=== PATIENT | female | born 1980 | race Two or more races ===

== ENCOUNTER 2019-03-17 20:03 | Emergency (ER) | payer OTHER, MEDICAID ==
[~2019-03-17] VITALS: Ht 157.5 cm; Wt 77.1 kg
[2019-03-17 20:37] LABS: Urine Bacteria NONE SEEN /hpf (None Seen); Urine Blood Negative /uL (Negative); Urine Specific Gravity 1.034 (1.001-1.035); Urine WBC 4 /hpf (0 - 5)
[2019-03-17 21:19] LABS: Basophils # (auto) 0 uL; Basophils % (auto) 0.4 % (0.0-2.0); Eosinophils # (auto) 0.1 uL; Eosinophils % (auto) 1.1 % (0.0-7.0); Hematocrit 44.2 % (36.0-46.0); Hemoglobin 14.9 g/dL (12.2-16.2); Lymphocytes # (auto) 1.1 uL; Lymphocytes % (auto) 13.7 % (10.0-50.0); Mean Corpuscular Hemoglobin 30.5 pg (28.0-32.0); Mean Corpuscular Hgb Conc. 33.6 g/dL (32.0-36.0); Mean Corpuscular Volume 90.6 fL (80.0-100.0); Monocytes # (auto) 0.4 uL; Monocytes % (auto) 5.7 % (0.0-12.0); Neutrophils # (auto) 6.1 uL; Neutrophils % (auto) 79.1 % (37.0-80.0); Nucleated Red Blood Cells % 0.1 %; Platelet Count (auto) 226 10^3/uL (140-450); Red Blood Cells 4.88 10^6/uL (4.0-5.20); Red Cell Distribution Width 13.6 % (11.8-14.3); White Blood Cell 7.7 10^3/uL (4.4-10.8)
[2019-03-17 21:33] LABS: Albumin 3.9 g/dL (3.4-5.0); Calcium 9.2 mg/dL (8.5-10.1); Potassium 4.3 mmol/L (3.5-5.1)
[2019-03-17 21:36] LABS: Bilirubin, Total 0.2 mg/dL (0.2-1.0); Total Protein 7.7 g/dL (6.4-8.2)
[2019-03-17] MEDS: MAGNESIUM CITRATE SOLUTION 300 ML BTL PO ONE (23:05)
[2019-03-17 23:15] VITALS: BP 132/97
[2019-03-17] MEDS: MAGNESIUM CITRATE SOLUTION 300 ML BTL ONE (23:24)
== END 2019-03-17 23:41 | disposition home or self-care (01) ==
LOC: ER 20:11
DX: N39.0 Urinary tract infection, site not specified (principal); K59.00 Constipation, unspecified
CPT/HCPCS: 36415; 80053; 81001; 81025; 83690; 85025

== ENCOUNTER 2020-03-13 13:24 | Emergency (ER) | payer OTHER, MEDICAID ==
[~2020-03-13] VITALS: Ht 162.6 cm; Wt 72.6 kg
[2020-03-13 13:37] VITALS: BP 135/86
== END 2020-03-13 18:50 | disposition home or self-care (01) ==
LOC: ER 13:24 → EDBD 13:24 → ER 18:50
DX: F32.9 Major depressive disorder, single episode, unspecified (principal); Z76.0 Encounter for issue of repeat prescription

== ENCOUNTER 2021-08-17 04:55 | Emergency (ER) | payer OTHER, MEDICAID ==
[~2021-08-17] VITALS: Ht 162.6 cm; Wt 95.3 kg
[2021-08-17 04:56] VITALS: BP 148/92
[2021-08-17 06:50] LABS: Basophils # (auto) 0 10 ^3/uL (0-0.2); Basophils % (auto) 0.1 % (0.0-2.0); Eosinophils # (auto) 0 10 ^3/uL (0-0.8); Eosinophils % (auto) 0.1 % (0.0-7.0); Hematocrit 39.5 % (36.0-46.0); Hemoglobin 13.3 g/dL (12.2-16.2); Lymphocytes # (auto) 0.8 10 ^3/uL (0.4-5.4); Lymphocytes % (auto) 8.8 % (10.0-50.0); Mean Corpuscular Hemoglobin 30.3 pg (28.0-32.0); Mean Corpuscular Hgb Conc. 33.8 g/dL (32.0-36.0); Mean Corpuscular Volume 89.8 fL (80.0-100.0); Monocytes # (auto) 0.3 10 ^3/uL (0-1.3); Monocytes % (auto) 3.1 % (0.0-12.0); Neutrophils # (auto) 7.8 10 ^3/uL (1.6-8.6); Neutrophils % (auto) 87.9 % (37.0-80.0); Nucleated Red Blood Cells % 0.1 %; Red Blood Cells 4.39 10^6/uL (4.0-5.20); Red Cell Distribution Width 12.9 % (11.8-14.3); White Blood Cell 8.9 10^3/uL (4.4-10.8)
[2021-08-17 07:06] LABS: Calcium 9.2 mg/dL (8.5-10.1); Potassium 3.6 mmol/L (3.5-5.1)
[2021-08-17 07:10] LABS: BUN/Creatinine Ratio 14.3; Bilirubin, Total 0.7 mg/dL (0.2-1.0)
[2021-08-17 11:47] LABS: Urine Bacteria NONE SEEN /hpf (None Seen); Urine Blood 3+ /uL (Negative); Urine Specific Gravity 1.034 (1.001-1.035); Urine WBC 13 /hpf (0 - 5)
== END 2021-08-17 13:20 | disposition left against medical advice (07) ==
LOC: EDUNIT# 04:55 → EDBD 04:55 → ER 04:55
DX: R10.84 Generalized abdominal pain (principal); R11.2 Nausea with vomiting, unspecified; Z53.21 Procedure and treatment not carried out due to patient leaving prior to being seen by health care provider
CPT/HCPCS: 36415; 80053; 81001; 81025; 83690; 84702; 85025

== ENCOUNTER 2021-08-17 20:59 | Inpatient (IN) | payer OTHER, MEDICAID ==
[~2021-08-17] VITALS: Ht 157.5 cm; Wt 72.9 kg
[2021-08-18] MEDS ORDERED: LACTATED RINGER'S 2,000 ML IV ONE (05:00)
[2021-08-18] MEDS ORDERED: SOD CHL 0.9%/ KCL 20MEQ 1,000 ML IV ONE (05:00)
[2021-08-18] MEDS ORDERED: DEXTROSE (50%) 50ML SYRG IV PRN ×2 (05:00→14:00)
[2021-08-18] MEDS ORDERED: ONDANSETRON HCL 4 MG/2 ML VIAL IV ONE (06:15)
[2021-08-18 07:25] LABS: Magnesium 2.4 mg/dL (1.6-2.6)
[2021-08-18 07:27] LABS: Phosphorus 4.5 mg/dL (2.5-4.90)
[2021-08-18] MEDS: ACCU-CHEK COMFORT CURVE STRIP VI SCH ×11 (09:25→22:30)
[2021-08-18] MEDS: InsuLIN R (HUMAN) 100 UNITS in SODIUM CHL 0.9% 99 ML IV SCH ×3 (10:46→14:10)
[2021-08-18] MEDS ORDERED: INSULIN LANTUS (GLARGINE) 1 /0.01ml (100units/ml) SC ONE (14:00)
[2021-08-18 15:21] LABS: Calcium 8.9 mg/dL (8.5-10.1); Magnesium 2.4 mg/dL (1.6-2.6); Potassium 3.6 mmol/L (3.5-5.1)
[2021-08-18 15:27] LABS: BUN/Creatinine Ratio 24.1; Phosphorus 2.2 mg/dL (2.5-4.90)
[2021-08-18] MEDS: D5W/SOD CHL 0.45%/KCL 20MEQ 1,000 ML IV SCH ×4 (16:09→20:40)
[2021-08-18] MEDS: SOD CHL 0.9%/ KCL 20MEQ 1,000 ML IV SCH ×2 (16:10→20:40)
[2021-08-18] MEDS: ONDANSETRON HCL 4 MG/2 ML VIAL IV PRN (16:23)
[2021-08-18 19:38] LABS: Urine Bacteria NONE SEEN /hpf (None Seen); Urine Blood 3+ /uL (Negative); Urine Mucus FEW (None Seen); Urine Specific Gravity 1.038 (1.001-1.035); Urine WBC 11 /hpf (0 - 5)
[2021-08-18 21:46] LABS: BUN/Creatinine Ratio 22.5; Calcium 8.7 mg/dL (8.5-10.1); Potassium 3.7 mmol/L (3.5-5.1)
[2021-08-19] MEDS: ACCU-CHEK COMFORT CURVE STRIP VI SCH ×12 (00:26→21:14)
[2021-08-19] MEDS: ONDANSETRON HCL 4 MG/2 ML VIAL IV PRN ×3 (00:58→20:48)
[2021-08-19] MEDS: MORPHINE SULFATE INJ 2 MG/ml SYRG IV PRN ×2 (01:06→18:09)
[2021-08-19 04:30] LABS: Anion Gap 11 (5-15); BUN/Creatinine Ratio 24.3; Blood Urea Nitrogen 17 mg/dL (7-18); Calcium 8.2 mg/dL (8.5-10.1); Carbon Dioxide 14 mmol/L (21-32); Chloride 110 mmol/L (98-107); GFR African American 117 mL/min; GFR Non-African American 97 mL/min; Glucose 200 mg/dL (74-106); Sodium 135 mmol/L (136-145)
[2021-08-19] MEDS: D5W/SOD CHL 0.45%/KCL 20MEQ 1,000 ML IV SCH ×6 (05:00→16:45)
[2021-08-19] MEDS: SOD CHL 0.9%/ KCL 20MEQ 1,000 ML IV SCH ×3 (07:00→16:40)
[2021-08-19 08:28] LABS: BUN/Creatinine Ratio 25.7; Calcium 8.8 mg/dL (8.5-10.1); Potassium 3.3 mmol/L (3.5-5.1)
[2021-08-19] MEDS ORDERED: INSULIN LANTUS (GLARGINE) 1 /0.01ml (100units/ml) SC SCH (10:00)
[2021-08-19] MEDS ORDERED: cefTRIAXone 1GM/50ML D5W 50 ML IV ONE (12:30)
[2021-08-19 17:22] LABS: BUN/Creatinine Ratio 17.6; Calcium 8.2 mg/dL (8.5-10.1); Potassium 3.4 mmol/L (3.5-5.1)
[2021-08-19] MEDS ORDERED: THROAT LOZENGES(CEPASTAT) MT PRN (18:30)
[2021-08-19] MEDS ORDERED: DEXTROSE (50%) 50ML SYRG IV PRN (18:30)
[2021-08-19] MEDS ORDERED: ACETAMINOPHEN 325 MG TAB PO PRN (18:30)
[2021-08-19] MEDS: SODIUM CHLORIDE 0.9% 1,000 ML IV SCH (20:52)
[2021-08-19] MEDS ORDERED: ESCI-28 PO (21:11)
[2021-08-19] MEDS ORDERED: TRAZ50TA2 PO (21:11)
[2021-08-19] MEDS: INSULIN LANTUS (GLARGINE) 1 /0.01ml (100units/ml) SC SCH (21:15)
[2021-08-19] MEDS: InsuLIN REG 1unit/0.01ml Soln (100units/ml) SC SCH (21:17)
[2021-08-19 21:18] VITALS: BP 157/94
[2021-08-20 05:00] VITALS: BP 147/89
[2021-08-20] MEDS: SODIUM CHLORIDE 0.9% 1,000 ML IV SCH ×2 (05:11→16:07)
[2021-08-20] MEDS: ACCU-CHEK COMFORT CURVE STRIP VI SCH ×4 (05:48→21:11)
[2021-08-20] MEDS: InsuLIN REG 1unit/0.01ml Soln (100units/ml) SC SCH ×4 (05:52→21:18)
[2021-08-20] MEDS: INSULIN LANTUS (GLARGINE) 1 /0.01ml (100units/ml) SC SCH ×2 (05:53→21:12)
[2021-08-20 06:14] LABS: Basophils # (auto) 0 10 ^3/uL (0-0.2); Basophils % (auto) 0.3 % (0.0-2.0); Eosinophils # (auto) 0 10 ^3/uL (0-0.8); Eosinophils % (auto) 0.1 % (0.0-7.0); Hematocrit 34.9 % (36.0-46.0); Hemoglobin 12.4 g/dL (12.2-16.2); Lymphocytes # (auto) 1.4 10 ^3/uL (0.4-5.4); Lymphocytes % (auto) 17.8 % (10.0-50.0); Mean Corpuscular Hemoglobin 31.3 pg (28.0-32.0); Mean Corpuscular Hgb Conc. 35.4 g/dL (32.0-36.0); Mean Corpuscular Volume 88.4 fL (80.0-100.0); Monocytes # (auto) 0.6 10 ^3/uL (0-1.3); Monocytes % (auto) 7.2 % (0.0-12.0); Neutrophils # (auto) 5.9 10 ^3/uL (1.6-8.6); Neutrophils % (auto) 74.6 % (37.0-80.0); Nucleated Red Blood Cells % 0.1 %; Red Blood Cells 3.95 10^6/uL (4.0-5.20); Red Cell Distribution Width 12.9 % (11.8-14.3); White Blood Cell 7.9 10^3/uL (4.4-10.8)
[2021-08-20 06:30] LABS: Albumin 3.1 g/dL (3.4-5.0); Calcium 8.2 mg/dL (8.5-10.1)
[2021-08-20 06:36] LABS: BUN/Creatinine Ratio 21.6; Bilirubin, Total 0.7 mg/dL (0.2-1.0); Total Protein 6.8 g/dL (6.4-8.2)
[2021-08-20 06:49] LABS: Potassium 2.9 mmol/L (3.5-5.1)
[2021-08-20] MEDS: cefTRIAXone 1GM/50ML D5W 50 ML IV SCH (08:30)
[2021-08-20] MEDS: ONDANSETRON HCL 4 MG/2 ML VIAL IV PRN (08:30)
[2021-08-20 09:00] VITALS: BP 136/84
[2021-08-20] MEDS ORDERED: POTASSIUM CHL 20MEQ/100ML 100 ML IV ONE (09:45)
[2021-08-20] MEDS ORDERED: POTASSIUM CHL 20 Meq TABLET PO ONE ×2 (09:45→17:15)
[2021-08-20 13:00] VITALS: BP 136/81
[2021-08-20 17:00] VITALS: BP 146/86
[2021-08-20 22:00] VITALS: BP 132/79
[2021-08-21] MEDS: SODIUM CHLORIDE 0.9% 1,000 ML IV SCH ×3 (01:15→12:27)
[2021-08-21 05:00] VITALS: BP 142/83
[2021-08-21 06:06] LABS: BUN/Creatinine Ratio 13.2; Calcium 8.2 mg/dL (8.5-10.1); Magnesium 2.2 mg/dL (1.6-2.6); Potassium 3.1 mmol/L (3.5-5.1)
[2021-08-21] MEDS: ACCU-CHEK COMFORT CURVE STRIP VI SCH ×2 (06:20→12:06)
[2021-08-21] MEDS: INSULIN LANTUS (GLARGINE) 1 /0.01ml (100units/ml) SC SCH (06:27)
[2021-08-21] MEDS: InsuLIN REG 1unit/0.01ml Soln (100units/ml) SC SCH ×2 (06:28→12:28)
[2021-08-21] MEDS: cefTRIAXone 1GM/50ML D5W 50 ML IV SCH (08:48)
[2021-08-21 09:03] VITALS: BP 156/95
[2021-08-21] MEDS ORDERED: POTASSIUM CHL 20 Meq TABLET PO ONE (12:15)
== END 2021-08-21 12:00 | disposition left against medical advice (07) | DRG 638 ==
LOC: EDUNIT# 20:59 → EDBD 20:59 → ER 20:59 → OVERFLOW 08-18 13:55 → TELE-EAST 08-19 19:58
PROVIDERS: ADMIT Registered Nurse; ATTEND Internal Medicine Geriatric Medicine
DX: E10.10 Type 1 diabetes mellitus with ketoacidosis without coma (principal); N39.0 Urinary tract infection, site not specified; E66.9 Obesity, unspecified; E78.5 Hyperlipidemia, unspecified; E87.6 Hypokalemia; F31.9 Bipolar disorder, unspecified; K76.0 Fatty (change of) liver, not elsewhere classified; K80.20 Calculus of gallbladder without cholecystitis without obstruction; Z53.29 Procedure and treatment not carried out because of patient's decision for other reasons; Z68.29 Body mass index [BMI] 29.0-29.9, adult
CPT/HCPCS: 36415; 36600; 71045; 74176; 80048; 80053; 80061; 81001; 82010; 82805; 82962; 83036; 83690; 83735; 83930; 84100; 85025; 93005; 96361; 96365; 96366; G0378; J0696; J1815; J2405; J3480

== ENCOUNTER 2021-08-28 22:48 | Emergency (ER) | payer OTHER, MEDICAID ==
[~2021-08-28] VITALS: Ht 162.6 cm; Wt 68.0 kg
[~2021-08-28 22:48] MED LIST: ESCI-28 PO; TRAZ50TA2 PO
[2021-08-29 01:25] LABS: Albumin 3.8 g/dL (3.4-5.0); Calcium 9.4 mg/dL (8.5-10.1); Potassium 3.7 mmol/L (3.5-5.1)
[2021-08-29 01:27] LABS: BUN/Creatinine Ratio 12.7
[2021-08-29 01:30] LABS: Bilirubin, Total 0.2 mg/dL (0.2-1.0); Total Protein 7.5 g/dL (6.4-8.2)
[2021-08-29 01:40] LABS: Basophils # (auto) 0 10 ^3/uL (0-0.2); Basophils % (auto) 0.5 % (0.0-2.0); Eosinophils # (auto) 0 10 ^3/uL (0-0.8); Eosinophils % (auto) 0.4 % (0.0-7.0); Hematocrit 39.7 % (36.0-46.0); Hemoglobin 13.5 g/dL (12.2-16.2); Lymphocytes # (auto) 1.6 10 ^3/uL (0.4-5.4); Lymphocytes % (auto) 19.1 % (10.0-50.0); Mean Corpuscular Hemoglobin 30.4 pg (28.0-32.0); Mean Corpuscular Hgb Conc. 33.9 g/dL (32.0-36.0); Mean Corpuscular Volume 89.5 fL (80.0-100.0); Monocytes # (auto) 0.5 10 ^3/uL (0-1.3); Monocytes % (auto) 5.8 % (0.0-12.0); Neutrophils # (auto) 6.4 10 ^3/uL (1.6-8.6); Neutrophils % (auto) 74.2 % (37.0-80.0); Red Blood Cells 4.43 10^6/uL (4.0-5.20); Red Cell Distribution Width 12.7 % (11.8-14.3); White Blood Cell 8.6 10^3/uL (4.4-10.8)
[2021-08-29 05:10] VITALS: BP 135/70
== END 2021-08-29 05:12 | disposition home or self-care (01) ==
LOC: EDBD 22:48 → ER 22:48
DX: T38.3X1A Poisoning by insulin and oral hypoglycemic [antidiabetic] drugs, accidental (unintentional), initial encounter (principal); F41.9 Anxiety disorder, unspecified; E11.9 Type 2 diabetes mellitus without complications; Z79.899 Other long term (current) drug therapy; Y92.89 Other specified places as the place of occurrence of the external cause
CPT/HCPCS: 36415; 80053; 85025

== ENCOUNTER 2021-09-09 23:05 | Emergency (ER) | payer OTHER, MEDICAID ==
[~2021-09-09] VITALS: Ht 157.5 cm; Wt 54.4 kg
[2021-09-09 23:52] LABS: Basophils # (auto) 0.1 10 ^3/uL (0-0.2); Basophils % (auto) 0.9 % (0.0-2.0); Eosinophils # (auto) 0 10 ^3/uL (0-0.8); Eosinophils % (auto) 0.1 % (0.0-7.0); Hematocrit 44.6 % (36.0-46.0); Hemoglobin 14.6 g/dL (12.2-16.2); Lymphocytes # (auto) 1.3 10 ^3/uL (0.4-5.4); Lymphocytes % (auto) 16.2 % (10.0-50.0); Mean Corpuscular Hemoglobin 29.2 pg (28.0-32.0); Mean Corpuscular Hgb Conc. 32.7 g/dL (32.0-36.0); Mean Corpuscular Volume 89.3 fL (80.0-100.0); Monocytes # (auto) 0.5 10 ^3/uL (0-1.3); Monocytes % (auto) 5.6 % (0.0-12.0); Neutrophils # (auto) 6.3 10 ^3/uL (1.6-8.6); Neutrophils % (auto) 77.2 % (37.0-80.0); Red Blood Cells 4.99 10^6/uL (4.0-5.20); Red Cell Distribution Width 13.1 % (11.8-14.3); White Blood Cell 8.2 10^3/uL (4.4-10.8)
[2021-09-10 00:06] LABS: Urine Bacteria MANY /hpf (None Seen); Urine Blood TRACE /uL (Negative); Urine Mucus FEW (None Seen); Urine WBC 53 /hpf (0 - 5)
[2021-09-10 00:14] LABS: Albumin 4.2 g/dL (3.4-5.0); BUN/Creatinine Ratio 12.3; Calcium 9.5 mg/dL (8.5-10.1); Potassium 3.5 mmol/L (3.5-5.1)
[2021-09-10 00:15] LABS: Bilirubin, Total 0.3 mg/dL (0.2-1.0); Total Protein 8.4 g/dL (6.4-8.2)
[2021-09-10] MEDS ORDERED: cefTRIAXone 1GM/50ML D5W 50 ML IV ONE (03:15)
[2021-09-10] MEDS ORDERED: ONDANSETRON ODT 4 MG TAB PO ONE (05:15)
[2021-09-10] MEDS ORDERED: cefTRIAXone SOD 1,000 MG VL IM ONE (05:15)
[2021-09-10] MEDS ORDERED: ONDA-144 PO (08:04)
[2021-09-10] MEDS ORDERED: NITR-87 PO (08:04)
[2021-09-10 10:03] VITALS: BP 139/91
== END 2021-09-10 11:39 | disposition home or self-care (01) ==
LOC: ER 23:05 → EDBD 23:05 → EDUNIT# 23:05 → ER 09-10 11:39
DX: K59.00 Constipation, unspecified (principal); N39.0 Urinary tract infection, site not specified; R11.0 Nausea; E11.9 Type 2 diabetes mellitus without complications; Z79.899 Other long term (current) drug therapy; Z88.8 Allergy status to other drugs, medicaments and biological substances
CPT/HCPCS: 36415; 74176; 80053; 81001; 81025; 83690; 85025; 93005; 96372; 99285; J0696; Q0162

== ENCOUNTER 2021-10-13 16:09 | Emergency (ER) | payer OTHER, MEDICAID ==
[~2021-10-13] VITALS: Ht 157.5 cm; Wt 66.0 kg
[~2021-10-13 16:09] MED LIST changes: +NITR-87 PO; +ONDA-144 PO
[2021-10-13 16:36] VITALS: BP 158/92
[2021-10-13] MEDS ORDERED: IBUPROFEN 400 MG TAB PO ONE (18:00)
[2021-10-13] MEDS ORDERED: SODIUM CHLORIDE 0.9% 1,000 ML IVB ONE (18:30)
[2021-10-13 23:05] LABS: Albumin 4.2 g/dL (3.4-5.0); Calcium 9.1 mg/dL (8.5-10.1); Potassium 3.8 mmol/L (3.5-5.1)
[2021-10-13 23:07] LABS: BUN/Creatinine Ratio 15.2
[2021-10-13 23:20] LABS: Bilirubin, Total 0.5 mg/dL (0.2-1.0); Total Protein 8.2 g/dL (6.4-8.2)
[2021-10-13 23:28] LABS: Basophils # (auto) 0 10 ^3/uL (0-0.2); Basophils % (auto) 0.3 % (0.0-2.0); Eosinophils # (auto) 0 10 ^3/uL (0-0.8); Eosinophils % (auto) 0.4 % (0.0-7.0); Hematocrit 41.4 % (36.0-46.0); Hemoglobin 13.8 g/dL (12.2-16.2); Lymphocytes # (auto) 1.5 10 ^3/uL (0.4-5.4); Lymphocytes % (auto) 19.8 % (10.0-50.0); Mean Corpuscular Hemoglobin 29.3 pg (28.0-32.0); Mean Corpuscular Hgb Conc. 33.3 g/dL (32.0-36.0); Monocytes # (auto) 0.5 10 ^3/uL (0-1.3); Monocytes % (auto) 6.5 % (0.0-12.0); Neutrophils # (auto) 5.4 10 ^3/uL (1.6-8.6); Nucleated Red Blood Cells % 0.1 %; Red Cell Distribution Width 13.8 % (11.8-14.3); White Blood Cell 7.4 10^3/uL (4.4-10.8)
== END 2021-10-13 17:00 | disposition home or self-care (01) ==
LOC: EDBD 16:09 → ER 16:09
DX: R10.9 Unspecified abdominal pain (principal); E11.9 Type 2 diabetes mellitus without complications; Z79.899 Other long term (current) drug therapy; Z88.8 Allergy status to other drugs, medicaments and biological substances
CPT/HCPCS: 36415; 76856; 80053; 83605; 83690; 84702; 85025

== ENCOUNTER 2021-11-10 17:17 | Emergency (ER) | payer OTHER, MEDICAID ==
[~2021-11-10] VITALS: Ht 157.5 cm; Wt 65.9 kg
[2021-11-10 18:29] VITALS: BP 160/101
[2021-11-10 19:26] LABS: Urine Bacteria NONE SEEN /hpf (None Seen); Urine Blood 3+ /uL (Negative); Urine WBC 1885 /hpf (0 - 5); Urine WBC Clumps PRESENT /hpf (None Seen)
[2021-11-10 19:53] LABS: Basophils # (auto) 0 10 ^3/uL (0-0.2); Basophils % (auto) 0.5 % (0.0-2.0); Eosinophils # (auto) 0 10 ^3/uL (0-0.8); Eosinophils % (auto) 0.4 % (0.0-7.0); Hematocrit 43.2 % (36.0-46.0); Hemoglobin 14.2 g/dL (12.2-16.2); Lymphocytes # (auto) 1.5 10 ^3/uL (0.4-5.4); Lymphocytes % (auto) 18.9 % (10.0-50.0); Mean Corpuscular Hemoglobin 28.9 pg (28.0-32.0); Mean Corpuscular Hgb Conc. 32.9 g/dL (32.0-36.0); Mean Corpuscular Volume 87.9 fL (80.0-100.0); Monocytes # (auto) 0.5 10 ^3/uL (0-1.3); Monocytes % (auto) 6.2 % (0.0-12.0); Nucleated Red Blood Cells % 0.1 %; Red Blood Cells 4.91 10^6/uL (4.0-5.20); Red Cell Distribution Width 13.8 % (11.8-14.3); White Blood Cell 8.1 10^3/uL (4.4-10.8)
[2021-11-10 19:54] LABS: Potassium 3.8 mmol/L (3.5-5.1)
[2021-11-10 19:58] LABS: BUN/Creatinine Ratio 16.7; Calcium 9.7 mg/dL (8.5-10.1)
== END 2021-11-11 05:22 | disposition left against medical advice (07) ==
LOC: EDBD 17:17 → ER 17:21
DX: R10.9 Unspecified abdominal pain (principal); F41.9 Anxiety disorder, unspecified; Z53.21 Procedure and treatment not carried out due to patient leaving prior to being seen by health care provider
CPT/HCPCS: 36415; 80048; 81001; 85025

== ENCOUNTER 2022-01-08 21:30 | Emergency (ER) | payer OTHER, MEDICAID ==
[~2022-01-08] VITALS: Ht 157.5 cm; Wt 68.0 kg
[2022-01-08 22:34] LABS: Urine Bacteria FEW /hpf (None Seen); Urine Blood 2+ /uL (Negative); Urine Specific Gravity 1.014 (1.001-1.035); Urine WBC 2 /hpf (0 - 5)
[2022-01-08 23:17] LABS: Basophils # (auto) 0 10 ^3/uL (0-0.2); Basophils % (auto) 0.6 % (0.0-2.0); Eosinophils # (auto) 0.1 10 ^3/uL (0-0.8); Eosinophils % (auto) 0.7 % (0.0-7.0); Hematocrit 41.4 % (36.0-46.0); Hemoglobin 13.8 g/dL (12.2-16.2); Lymphocytes # (auto) 1.4 10 ^3/uL (0.4-5.4); Lymphocytes % (auto) 17.6 % (10.0-50.0); Mean Corpuscular Hemoglobin 28.8 pg (28.0-32.0); Mean Corpuscular Hgb Conc. 33.2 g/dL (32.0-36.0); Mean Corpuscular Volume 86.8 fL (80.0-100.0); Monocytes # (auto) 0.3 10 ^3/uL (0-1.3); Monocytes % (auto) 4.2 % (0.0-12.0); Neutrophils # (auto) 6.2 10 ^3/uL (1.6-8.6); Neutrophils % (auto) 76.9 % (37.0-80.0); Red Blood Cells 4.77 10^6/uL (4.0-5.20); Red Cell Distribution Width 13.1 % (11.8-14.3); White Blood Cell 8.1 10^3/uL (4.4-10.8)
[2022-01-08 23:33] LABS: Albumin 3.7 g/dL (3.4-5.0); Calcium 8.6 mg/dL (8.5-10.1); Potassium 3.9 mmol/L (3.5-5.1)
[2022-01-08 23:35] LABS: Bilirubin, Total 0.2 mg/dL (0.2-1.0); Total Protein 7.5 g/dL (6.4-8.2)
[2022-01-09] MEDS ORDERED: SODIUM CHLORIDE 0.9% 1,000 ML IV ONE (00:15)
[2022-01-09] MEDS ORDERED: GLIM2TAB33 PO (03:08)
[2022-01-09 03:22] VITALS: BP 149/88
== END 2022-01-09 03:54 | disposition home or self-care (01) ==
LOC: ER 21:35
DX: E11.65 Type 2 diabetes mellitus with hyperglycemia (principal); Z88.8 Allergy status to other drugs, medicaments and biological substances
CPT/HCPCS: 36415; 74176; 80053; 81001; 82962; 83690; 85025; 96360; 99283; J7030

== ENCOUNTER 2023-05-02 12:42 | Emergency (ER) | payer OTHER, MEDICAID ==
[~2023-05-02] VITALS: Ht 157.5 cm; Wt 70.9 kg
[~2023-05-02 12:42] MED LIST changes: -ESCI-28 PO; +ESCI1TAB36 PO; +GLIM2TAB33 PO; +TRAZ-227 PO; -TRAZ50TA2 PO
[2023-05-02 16:55] VITALS: BP 164/93; PULSE 104; RESP 16; TEMP 98.1; O2SAT 98
[2023-05-02] MEDS: ONDANSETRON ODT 4 MG TAB PO ONE (17:06)
[2023-05-02] MEDS: KETOROLAC TROMETH 60MG/2ML VIAL IM ONE (17:10)
[2023-05-02] MEDS ORDERED: ZOFR4T PO (17:34)
[2023-05-02] MEDS ORDERED: NAPR-746 PO (17:34)
== END 2023-05-02 17:48 | disposition home or self-care (01) ==
LOC: ER 12:42
DX: N94.6 Dysmenorrhea, unspecified (principal); E11.9 Type 2 diabetes mellitus without complications; Z79.899 Other long term (current) drug therapy; Z88.8 Allergy status to other drugs, medicaments and biological substances
CPT/HCPCS: 81002; 96372; 99283; J1885; Q0162

== ENCOUNTER 2024-06-28 18:14 | Emergency (ER) | payer MEDICAID, MEDICARE, OTHER ==
[~2024-06-28] VITALS: Ht 157.5 cm; Wt 66.2 kg
[~2024-06-28 18:14] MED LIST changes: +NAPR-746 PO; +ZOFR4T PO
[2024-06-28 18:29] VITALS: BP 146/101; PULSE 106; RESP 16; TEMP 98.6; O2SAT 97
--- NOTE | 2024-06-28 18:31 | ED.PDOC ---
History of Present Illness HPI Comments 44 y/o F, with a Hx of DM, chronic constipation, hemorrhoids, and schizophrenia, presents with c/o cramping abdominal pain, nausea, and vomiting, today. Patient is a poor historian. She reports suspicion of food poisoning. Denies any additional sick personal at home, currently. Patient denies any hematemesis, diarrhea, constipation, fever, chills, or other associated symptoms at this time. Time Seen by MD: 18:20 Primary Care Provider: ALANA Allergies: Coded Allergies: Metformin (Verified Allergy, Unknown, 09/09/21) Home Meds Active Scripts Ondansetron Odt 4MG Tab (ZOFRAN PO) 4 Mg Tb, 4 MG PO BID PRN, #14 TAB ODT TAB-DISSOLVE IN MOUTH, THEN SWALLOW Prov:PAPA SOMMERS 05/02/23 Naproxen (Naproxen) 500 Mg Tab, 500 MG PO BID, #30 TAB Prov:PAPA SOMMERS 05/02/23 Glimepiride (Glimepiride) 2 Mg Tab, 1 TAB PO DAILY, #30 TAB 5 Refills Prov:CELIA ROSARIO 01/09/22 Ondansetron (Zofran) 4 Mg Tab, 4 MG PO Q8HPRN PRN for 3 Days, #10 MG Prov:BETH MCKAY DO 09/10/21 Nitrofurantoin Monohydrate Mac (Macrobid) 100 Mg Cap, 100 MG PO BID for 7 Days, #14 CAP Prov:BETH MCKAY DO 09/10/21 Reported Medications Escitalopram Oxalate (ESCITALOPRAM OXALATE) 10 Mg Tab, 1 TAB PO 08/19/21 Trazodone Hcl (Trazodone Hcl) 50 Mg Tab, 1 TAB PO DAILYPRN 08/19/21 Past Medical History PAST MEDICAL HISTORY: Anxiety, DM, Schizophrenia Past Medical History (Other): hemorrhoids, chronic constipation Surgical History: Denies all surgeries MANAGER FLORAL History: No Pertinent MANAGER FLORAL History Family History Family History: Family hx of DM Social History Smoker: Non-Smoker Alcohol: Denies ETOH Use Drugs: Denies Drug Use Lives In: Home All Other Systems: Reviewed and Negative (as per HPI) Physical Exam General Appearance: No Apparent Distress, Obese HEENT: Normal ENT Inspection, Pharynx Normal, TMs Normal Neck: Full Range of Motion, Non-Tender, Normal, Normal Inspection Respiratory: Chest Non-Tender, Lungs Clear, No Accessory Muscle Use, No Respiratory Distress, Normal Breath Sounds Cardiovascular: No Edema, No JVD, No Murmur, No Gallop, Normal Peripheral Pulses, Regular Rate/Rhythm Breast Exam: Deferred Gastrointestinal: No Organomegaly, Non Tender, No Pulsatile Mass, Normal Bowel Sounds, Soft Genitalia: Deferred Pelvic: Deferred Rectal: Deferred Extremities: No calf tenderness, Normal capillary refill, Normal inspection, Normal range of motion, Non-tender, No pedal edema Musculoskeletal : Apperance: Normal Neurologic: Alert, auth specialist II-XII nml as Tested, No Motor Deficits, Normal Affect, Normal Mood, No Sensory Deficits Cerebellar Function: Normal Reflexes: Normal Skin: Dry, Normal Color, Warm Lymphatic: No Adenopathy Was a procedure done? Was a procedure done?: No Differential Dx Considerations may include: gastritis, gastroenteritis, spoiled food, , UTI, sbo, ileus, colitis, diverticulitis, perforated viscus, kidney stones, pancreatitis, related conditions, including ectopic and ruptured ectopic X-Ray, Labs, Meds, VS Vital Signs Date Time Temp Pulse Resp B/P (MAP) Pulse Ox O2 Delivery O2 Flow Rate FiO2 06/28/24 18:29 98.6 106 16 146/101 (116) 97 98.6 Lab Test 06/28/24 18:38 06/28/24 18:27 06/28/24 18:00 Range/Units White Blood Count 7.1 4.4-10.8 10^3/uL Red Blood Count 4.85 4.0-5.20 10^6/uL Hemoglobin 12.7 12.2-16.2 g/dL Hematocrit 39.6 36.0-46.0 % Mean Corpuscular Volume 81.5 80.0-100.0 fL Mean Corpuscular Hemoglobin 26.1 L 28.0-32.0 pg Mean Corpuscular Hemoglobin Concent 32.1 32.0-36.0 g/dL Red Cell Distribution Width 15.4 H 11.8-14.3 % Platelet Count 299 140-450 10^3/uL Mean Platelet Volume 9.3 6.9-10.8 fL Neutrophils (%) (Auto) 78.6 37.0-80.0 % Lymphocytes (%) (Auto) 14.8 10.0-50.0 % Monocytes (%) (Auto) 5.6 0.0-12.0 % Eosinophils (%) (Auto) 0.3 0.0-7.0 % Basophils (%) (Auto) 0.7 0.0-2.0 % Neutrophils # (Auto) 5.6 1.6-8.6 10 ^3/uL Lymphocytes # (Auto) 1.0 0.4-5.4 10 ^3/uL Monocytes # (Auto) 0.4 0-1.3 10 ^3/uL Eosinophils # (Auto) 0 0-0.8 10 ^3/uL Basophils # (Auto) 0.1 0-0.2 10 ^3/uL Nucleated Red Blood Cells 0.0 % Sodium Level 132 L 136-145 mmol/L Potassium Level 3.7 3.5-5.1 mmol/L Chloride Level 101 98-107 mmol/L Carbon Dioxide Level 22 20-31 mmol/L Anion Gap 9 5-15 Blood Urea Nitrogen 12 9-23 mg/dL Creatinine 0.90 0.550-1.02 mg/dL Glomerular Filtration Rate Calc 80 >90 mL/min BUN/Creatinine Ratio 13.3 10.0-20.0 Serum Glucose 300 H 74-106 mg/dL Calcium Level 9.6 8.7-10.4 mg/dL Beta HCG, Quantitative 0.4 L 1.5-4.2 mIU/mL POC Glucose 328 H 70-106 mg/dl Urine Color Red H Yellow Urine Clarity Ex.turbid Clear Urine pH 5.0 5.0-9.0 Urine Specific [place] 1.039 H 1.001-1.035 Urine Protein 2+ H Negative Urine Ketones Trace Negative Urine Blood 3+ H Negative /uL Urine Nitrite Negative Negative Urine Bilirubin Negative Negative Urine Urobilinogen Normal Negative mg/dL Urine Leukocyte Esterase Trace Negative /uL Urine RBC 6977 0 - 4 /hpf Urine Microscopic WBC 0-5 /HPF Urine Squamous Epithelial Cells None seen <5 /hpf Urine Bacteria None seen None Seen /hpf Urine Mucus Few None Seen Urine Glucose 4+ H Normal mg/dL Time of 1ST Reevaluation: 18:50 Reevaluation 1ST: Unchanged Time of 2ND Reevaluation: 23:00 Reevaluation 2ND: eloped Patient Education/Counseling: Diagnosis, Treatment, Prognosis, Need For Follow Up Family Education/Counseling: No Family Present Additional Information -Reviewed patient's previous visit(s): June 18, 2023 encounter for DKA - The following tests were ordered, and results were reviewed by me: KUB abdomen, UA, beta HCG quant, BMP, CBC - Additional information was gathered from interviewing the following independent Historian: n/a - I reviewed and agreed with the following test results read by other provider: ROSEMARIE abdomen - I discussed treatments and results with medical personnel and: patient Departure 1 Departure Time of Disposition: 23:00 Impression: Primary Impression: Nausea Additional Impressions: Abdominal pain Qualified Codes: R10.9 - Unspecified abdominal pain Hyperglycemia Disposition: 07 LEFT AWOL/ELOPED Condition: Other (unknown) Critical Care Note Critical Care Time?: Yes (55 min-critical care time only) Critical care comment: due to concerns for patient's condition deteriorating, the care required my highest level of attention and readiness to intervene. i assessed the patient's condition, ordered the proper tests and treatments, reassessed for response and reviewed the results. i communicated with medical personnel and formulated a plan of care. total critical care time does not include any procedures Stability Stability form required: No Heart Score Heart Score: Heart Score Response (Comments) Value History N/A 0 EKG N/A 0 Age N/A 0 Risk Factors N/A 0 Troponin N/A 0 Total 0 I personally scribed for JEREMY ZARATE MD ([email or web address]) on 06/28/24 at 18:31. Electronically submitted by Evan Colon ([email or web address]). JEREMY ZARATE MD Jun 28, 2024 18:31
[2024-06-28 18:44] LABS: Urine Bacteria None Seen /hpf (None Seen)
[2024-06-28 18:50] LABS: Basophils # (auto) 0.1 10 ^3/uL (0-0.2); Basophils % (auto) 0.7 % (0.0-2.0); Eosinophils # (auto) 0 10 ^3/uL (0-0.8); Eosinophils % (auto) 0.3 % (0.0-7.0); Hematocrit 39.6 % (36.0-46.0); Hemoglobin 12.7 g/dL (12.2-16.2); Lymphocytes % (auto) 14.8 % (10.0-50.0); Mean Corpuscular Hemoglobin 26.1 pg (28.0-32.0); Mean Corpuscular Hgb Conc. 32.1 g/dL (32.0-36.0); Mean Corpuscular Volume 81.5 fL (80.0-100.0); Monocytes # (auto) 0.4 10 ^3/uL (0-1.3); Monocytes % (auto) 5.6 % (0.0-12.0); Neutrophils # (auto) 5.6 10 ^3/uL (1.6-8.6); Neutrophils % (auto) 78.6 % (37.0-80.0); Platelet Count (auto) 299 10^3/uL (140-450); Red Blood Cells 4.85 10^6/uL (4.0-5.20); Red Cell Distribution Width 15.4 % (11.8-14.3); White Blood Cell 7.1 10^3/uL (4.4-10.8)
[2024-06-28 18:52] LABS: Urine Blood 3+ /uL (Negative); Urine Clarity Ex.Turbid (Clear); Urine Color Red (Yellow); Urine Mucus FEW (None Seen); Urine Protein, UAD 2+ (Negative); Urine Specific Gravity 1.039 (1.001-1.035); Urine Squamous Epithelial Cell None Seen /hpf (<5); Urine Urobilinogen Normal (Negative)
[2024-06-28 19:25] LABS: Chloride 101 mmol/L (98-107); Potassium 3.7 mmol/L (3.5-5.1)
[2024-06-28 19:26] LABS: Anion Gap 9 (5-15); Calcium 9.6 mg/dL (8.7-10.4); Carbon Dioxide 22 mmol/L (20-31)
[2024-06-28 19:31] LABS: BUN/Creatinine Ratio 13.3 (10.0-20.0); Blood Urea Nitrogen 12 mg/dL (9-23)
[2024-06-28 19:33] LABS: Glucose 300 mg/dL (74-106); Sodium 132 mmol/L (136-145)
--- NOTE | 2024-06-28 21:38 | DVH ---
CLINICAL HISTORY: hematuria, abdominal pain TECHNIQUE: CT of the abdomen and pelvis was performed without intravenous contrast. This exam was per formed according to our departmental dose optimization program. Up-to-date CT equipment and radiation dose reduction techniques are utilized as appropriate. CTDI: 8.64 DLP: 471.85 WID: COMPARISON: CT ABD PELVIS WO CONTRAST on DOS: 01/08/22, FINDINGS: Lower Thorax: Small pericardial fluid. Lung bases are clear. Normal-sized heart. Liver and Biliary system: Normal-sized liver. There is a prominent hypodense lesion in segment 5/6 o f the liver measuring 4.9 cm on series 2, image 30 and has been present since 2021. Normal caliber ga llbladder with cholelithiasis. Spleen: Unremarkable. Adrenal Glands and Kidneys: Unremarkable. Pancreas and Retroperitoneum: Unremarkable. Aorta and Major Vessels: Unremarkable. Bowel, Mesentery and Peritoneal space: Normal caliber small and large bowel. Normal appendix. No free air or fluid collection. Pelvis: Unremarkable. Abdominal wall and Osseous Structures: Thoracic and lumbar spondylosis. No destructive osseous lesion . IMPRESSION: 1. No noncontrast evidence of acute abnormality. 2. Prominent hypodense lesion in segment 5/6 of the liver since 2021, not optimally evaluated without contrast. This could be further evaluated with nonemergent / outpatient contrast-enhanced CT or MRI abdomen (liver mass protocol)
[2024-06-29] MEDS ORDERED: ALBUTEROL SULF 2.5 MG/0.5ML(0.5%) NEB SOLN ONE (00:13)
== END 2024-06-28 21:32 | disposition left against medical advice (07) ==
LOC: ER 18:14
DX: E11.65 Type 2 diabetes mellitus with hyperglycemia (principal); R10.9 Unspecified abdominal pain; R11.2 Nausea with vomiting, unspecified; F41.9 Anxiety disorder, unspecified; F20.9 Schizophrenia, unspecified; Z79.899 Other long term (current) drug therapy; Z88.8 Allergy status to other drugs, medicaments and biological substances
CPT/HCPCS: 36415; 74176; 80048; 81001; 82947; 82962; 84702; 85025